=== PATIENT | female | born 1955 | race Caucasian/White ===

== ENCOUNTER 2024-10-22 12:51 | Outpatient (AMB) | payer MEDICARE, SELFPAY ==
--- NOTE | 2024-10-22 13:02 | A.OFFVIS_ITS ---
Vital Signs 10/22/24 13:07 Height 5 ft 1 in Weight 103 lb 6 oz BMI 19.5 BP 117/61 Blood Pressure Location Rt brachial Position Sitting Pulse 94 Pulse Source Pulse Oximeter Pulse Oximetry (%) 100 Oxygen Delivery Method Room Air Intake Visit Reasons: Postoperative Pain Intake Note: Pain today 8/10 Allergies acetaminophen [From Percocet] Allergy (Unknown, Verified 10/22/24 13:34) Vomiting codeine Allergy (Unknown, Verified 10/22/24 13:34) Shortness of Breath morphine Allergy (Unknown, Verified 10/22/24 13:05) Vomiting oxycodone [From Percocet] Allergy (Unknown, Verified 10/22/24 13:34) Vomiting Penicillins Allergy (Unknown, Verified 10/22/24 13:05) Rash Sulfa (Sulfonamide Antibiotics) Allergy (Unknown, Verified 10/22/24 13:34) Rash tramadol Allergy (Unknown, Verified 10/22/24 13:34) Nausea HPI Comments Details: The patient is a 69-year-old female presenting with chronic postop and neuropathic abdominal wall pain following a total abdominal colectomy and subsequent emergency surgery for bowel obstruction in April 2024. The pain developed post-surgery and has been persistent with a burning, stabbing quality primarily located in the mid-abdomen extending from the left upper quadrant to the mid-abdomen, with sharp pains near the umbilical and right lower quadrant regions. The pain is exacerbated by activity and disrupts nocturnal rest. Pain is not affected by p.o. intake or fasting. Patient experiences frequent stooling episodes following food intake, leading to ongoing debilitating effects and exhaustion. Muscle wasting and inability to gain weight have been substantial postoperative concerns per patient. Initial management with tramadol , oxycodone, and dilaudid provided limited relief due to the severity of the pain. Efforts with neuropathic medication failed because of ineffectiveness and an allergic reaction to high-dose gabapentin. Patient had follow-up with surgeon in July with Dr. Vela who did CT scan. For referral notes, CT with no other etiology of persistent pain. She denies any significant pain along the incisional line and has used topical treatments like Arnica and moist heat packs does have been ineffective. - Onset and Timing: Developed post-surgery in April and persists to date. - Quality and Character: Deep, burning, stabbing, cutting and sharp pain. - Primary Location: Along the mid-abdominal incisional line, extending from the left upper quadrant into the mid-abdomen, with sharp pains at the umbilicus and RLQ. - Radiation: None noted beyond the abdominal area. - Exacerbating Factors: Activities such as bending and attempts at sleep increase discomfort. Sitting, walking, standing. - Relieving Factors: Bent posture for activities like gardening provides some respite. Tramadol offers some relief. - Functional Interference: Severe interference with sleep, mobility, and daily activities. - Affect: Pain significantly impacts sleep and quality of life, with exacerbated depression, anxiety and frustration due to unresolved pain and functional limitations. - Analgesia: Currently ineffective with prior trials of oxycodone, dilaudid, gabapentin, and duloxetine. Current use of ibuprofen without notable relief. Tramadol provides temporary and partial relief. - Adverse Effects: Previous allergic reaction to high-dose gabapentin leading to emergency care. - Activities of Daily Living: Limited by severe abdominal pain and excessive bowel movements post-meals which impact daily activity and social functioning. - Aberrant Drug Related Behaviors: None reported. [facility] Medical History (Updated 10/22/24 @ 21:45 by CONSTANTINE Kwan) Diarrhea Weight loss Major depressive disorder Postoperative pain Lichenoid dermatitis COPD (chronic obstructive pulmonary disease) Pain in shoulder region Carpal tunnel syndrome Chronic pain Fibromyalgia Insomnia IBS (irritable bowel syndrome) Constipation Asthma Multiple nodules of lung Surgical History (Updated 10/22/24 @ 21:36 by CONSTANTINE Kwan) History of colectomy Review of Systems Const Details: - Gastrointestinal: Reports chronic diarrhea resembling pancake batter, with high stool frequency post-meals; denies bloating, denies constipation. - Musculoskeletal: Reports significant muscle wasting and inability to gain weight. - Neurological: Reports severe burning, sharp and stabbing abdominal wall and deep abdominal pain. - Psychological: Reports insomnia and no counseling. All systems reviewed & are unremarkable except as noted in HPI and below Physical Exam Vital Signs: Last Vital Signs Pulse 94 10/22/24 13:07 BP 117/61 10/22/24 13:07 Pulse Ox 100 10/22/24 13:07 Oxygen Delivery Method Room Air 10/22/24 13:07 BMI result Body Mass Index 19.5 General: Appears afebrile. Alert and oriented. Mood and affect appropriate. Anxious and sad. Follows and participates in conversation appropriately. Respiratory effort is unlabored. No cough. Able to transition from sit to stand unassisted. Ambulates with bilaterally normal heel strike and toe off. GI Inspection: Yes normal to inspection, No abdominal wall ecchymosis and Yes scar (well healed incisions, mild tenderness with light palpation along incision) Palpation (GI): Soft to palpation, Tenderness to palpation present (GI) in the RLQ, in the LUQ and periumbilically; with no rebound tenderness, No hepatosplenomegaly present and Carnett's sign positive Results Reviewed Results Reviewed: No imaging results are available for review. Assessment & Plan Assessment & Plan (1) History of colectomy: Code(s): Z90.49 - Acquired absence of other specified parts of digestive tract Category: Surgical (2) Abdominal wall pain: Code(s): R10.9 - Unspecified abdominal pain Category: Medical (3) Fibromyalgia: Code(s): M79.7 - Fibromyalgia Category: Medical (4) Chronic pain syndrome: Code(s): G89.4 - Chronic pain syndrome Category: Medical Plan Multiple strategies were discussed for managing postoperative and neuropathic abdominal pain due to ongoing postoperative pain status post colectomy in April 2024. This included dietary modifications and ultrasound-guided TAP block assessment for both diagnostic and palliative purposes. Expectations, risks and benefits were reviewed. Patient is aware she will be contacted to schedule this procedure. If current interventions prove inadequate, in-depth considerations for a ITDD pain pump and spinal cord stimulator may be necessary following a favorable psychological evaluation. Continued engagement with the primary care physician and surgical team for ongoing management is vital. We also addressed expectations regarding surgical recovery timelines, extending potential recovery beyond 6 months, underlining the complex nature of neurological and musculoskeletal healing post surgery. Informational pamphlets were provided to patient and family and discussed interventional treatments today. All questions and concerns have been answered and patient agreed with the treatment plan. Follow-up after injections and sooner as needed. Patient was informed and verbally consented to the use of an ambient scribe for clinic note documentation during this visit. Patient Instructions: - Consider dietary plans for bowel symptom management, including BRAT and low- FODMAP diets. - Avoid food choices that exacerbate symptoms, particularly high-gas foods. - Attend the scheduled follow-up appointment with your surgeon and primary care physician as planned. - Engage in activities that are comfortable and refrain from those exacerbating pain. - Contact the clinic if pain severely worsens or if there are changes in other symptoms. - Await contact regarding insurance approval for TAP block evaluation. Coding Level of Care Code New Pt Level 4 (60206) Diagnoses History of colectomy Z90.49 Abdominal wall pain R10.9 Fibromyalgia M79.7 Chronic pain syndrome G89.4
--- OUTSIDE RECORDS SUMMARY | 2024-10-22 13:06 | XMS_ITS | Clinical Summary ---
Author Organization [facility] Address [id number] [place] [id number] Care Team Providers Care Mannequin Wig Maker Name Role Phone Bren Morel FLYING TEACHER Primary Care Provider [phone] Social History Tobacco Use Types Packs/Day Years Used Date Smoking Tobacco: Never Assessed Comments Unknown Sex and Gender Information Value Date Recorded Sex Assigned at Not on file Legal Sex Female 11:06 AM EDT Gender Identity Not on file Sexual Orientation Not on file Last Filed Vital Signs Vital Sign Reading Time Taken Comments Blood Pressure 119/75 08/25/2023 8:23 AM EDT Pulse 74 08/25/2023 8:23 AM EDT Temperature - - Respiratory Rate - - Oxygen Saturation - - Inhaled Oxygen Concentration - - Weight 51.7 kg (114 lb) 08/25/2023 8:23 AM EDT Height 154.9 cm (5' 1 ) 08/25/2023 8:23 AM EDT Body Mass Index 21.54 08/25/2023 8:23 AM EDT Plan of Treatment Health Maintenance Due Date Last Done Comments Breast Cancer Screening 1955 DTaP,Tdap,and Td Vaccines (1 - Tdap) 1975 Pneumococcal Vaccine: 50+ Ye ars (1 of 1 - PCV) 2006 Zoster Vaccines (1 of 2) 2006 Colorectal Cancer Screening: Colonoscopy 12/19/2023 Depression Screening 12/19/2023 Falls Risk Assessment 12/19/2023 Hepatitis C Screening 12/19/2023 Osteoporosis Screening (Bone Density Screening) 12/19/2023 Social Influencers of Health Screening 12/19/2023 COVID-19 Vaccine ( - 2023-2 5 season) 2024 Influenza Vaccine (Season Ended) 2025 RSV Immunization Adult Patie nts (1 - 1-dose 75+ series) 2031 HIB Vaccines Aged Out No longer eligi ble based on patient's age to complete this topic HPV Vaccines Aged Out No longer eligi ble based on patient's age to complete this topic Hepatitis A Vaccines Aged Out No long er eligible based on patient's age to complete this topic Hepatitis B Vaccines Aged Out No long er eligible based on patient's age to complete this topic IPV Vaccines Aged Out No longer eligi ble based on patient's age to complete this topic MMR Vaccines Aged Out No longer eligi ble based on patient's age to complete this topic Meningococcal ACWY Vaccine Aged Out N o longer eligible based on patient's age to complete this topic Meningococcal B Vaccine Aged Out No l onger eligible based on patient's age to complete this topic RSV Immunization Patients Un vidya 20 months Aged Out No longer eligible b ased on patient's age to complete this topic Varicella Vaccines Aged Out No longer eligible based on patient's age to complete this topic Care Teams Mannequin Wig Maker Relationship Specialty Start Date End Date Bren Morel FNP [address] [place] [phone] PCP - General 08/06/23
[2024-10-22 13:07] VITALS: BP 117/61; PULSE 94; O2SAT 100; BMI 19.5
== END 2024-10-22 13:43 | disposition home or self-care (01) ==
LOC: HO.PMC 12:52
PROVIDERS: PCP Physician Assistant; Referring Provider Physician Assistant; Visit Provider Nurse Practitioner Family
DX: Z90.49 Acquired absence of other specified parts of digestive tract (principal); R10.9 Unspecified abdominal pain; M79.7 Fibromyalgia; G89.4 Chronic pain syndrome
CPT/HCPCS: 99204

== ENCOUNTER → 2024-10-22 12:51 | Outpatient (BNVA) | payer MEDICARE, SELFPAY | PROVIDERS: PCP Physician Assistant; Referring Provider Physician Assistant; Visit Provider Nurse Practitioner Family | DX: R10.9 Unspecified abdominal pain (principal); M79.7 Fibromyalgia; G89.4 Chronic pain syndrome; Z90.49 Acquired absence of other specified parts of digestive tract | CPT/HCPCS: 99202 ==